=== PATIENT | female | born 1995 | race Caucasian/White ===

== ENCOUNTER 2019-04-15 17:06 | Inpatient (IN) | payer OTHER ==
[~2019-04-15 17:06] MED LIST: Bupivacaine 0.25% HCL 30 ML VIAL ONE
[2019-04-15] MEDS ORDERED: hydrALAZINE 20 MG/ML VIAL SLOW IVP PRN (17:16)
[2019-04-15] MEDS ORDERED: NS / Oxytocin 40 units/1000ml 1,000 ML IV PRN (17:16)
[2019-04-15] MEDS ORDERED: Acetaminophen 500 MG TAB PO PRN (17:16)
[2019-04-15] MEDS ORDERED: Promethazine HCl 25 MG/ML VIAL IM PRN (17:16)
[2019-04-15] MEDS ORDERED: Ibuprofen 800 MG TAB PO PRN (17:16)
[2019-04-15] MEDS ORDERED: Butorphanol Tartrate 1 MG/ML VIAL SLOW IVP PRN (17:16)
[2019-04-15] MEDS ORDERED: HYDROcodone/Acetaminophen 5/325 mg Tablet PO PRN (17:16)
[2019-04-15] MEDS ORDERED: Diphenoxylate HCl/Atropine Tablet PO PRN ×2 (17:16)
[2019-04-15] MEDS ORDERED: Ondansetron PF 4 MG/2 ML Vial IVP PRN (17:16)
[2019-04-15] MEDS ORDERED: Carboprost 250 MCG/ML AMP IM PRN (17:16)
[2019-04-15] MEDS ORDERED: Lidocaine 1% (PF) 30 ML VIAL SC PRN (17:16)
[2019-04-15 17:22] VITALS: BMI 32.2
[2019-04-15] MEDS ORDERED: Penicillin G Potassium 5 MILL.UNITS in Sodium Chloride 0.9% 100 ML IVPB SCH (17:30)
[2019-04-15] MEDS ORDERED: NS w/ Oxytocin 10 units 500 ML IV SCH (17:30)
[2019-04-15] MEDS ORDERED: Oxytocin 10 UNITS/ML VIAL ONE (17:38)
[2019-04-15] MEDS ORDERED: NS w/ Oxytocin 10 units 500 ML ONE (17:38)
[2019-04-15] MEDS ORDERED: Penicillin G Potassium 5 MILL.UNITS VIAL ONE (17:38)
[2019-04-15 17:40] LABS: Mean Corpuscular HGB CONC 34.5 g/dL (32.0-36.0); Mean Corpuscular Hemoglobin 32.6 pg (27.0-31.0); Mean Corpuscular Volume 94.5 fL (78.0-98.0); Mean Platelet Volume 7.7 fL (7.4-10.4); Platelet Count 225 thou/uL (130-400); RBC Distribution Width 11.7 % (11.5-14.5); Red Blood Cell (RBC) Count 3.97 mill/uL (4.20-5.40); White Blood Cell (WBC) Count 14.5 thou/uL (4.8-10.8)
[2019-04-15 18:18] LABS: HBSAg Index 0.24 S/CO (0-0.99); Hep B Surf Ag Non-Reactive S/CO (NonReactive)
[2019-04-15 18:19] LABS: Syphilis Antibody Nonreactive (Nonreactive); Syphilis Antibody Index 0.02 S/CO (<1.00 Non-Reactive)
[2019-04-15] MEDS: Lactated Ringer's 1,000 ML IV SCH (18:54)
[2019-04-15] MEDS: Penicillin G 2.5 MILL.units 2.5 MILL.UNITS in Premix Bag 1 BAG IVPB SCH (21:49)
[2019-04-16] MEDS ORDERED: Fentanyl 4 mcg/Bup 0.1% Cadd 100 ML ONE (01:47)
[2019-04-16] MEDS ORDERED: Naloxone HCl 0.4 mg/ml Vial IVP PRN ×2 (02:23)
[2019-04-16] MEDS ORDERED: Ondansetron PF 4 MG/2 ML Vial IVP PRN ×2 (02:23→08:27)
[2019-04-16] MEDS ORDERED: Promethazine HCl 25 MG/ML VIAL IM PRN (02:23)
[2019-04-16] MEDS ORDERED: Acetaminophen 325 MG TAB PO PRN (02:23)
[2019-04-16] MEDS ORDERED: diphenhydrAMINE 50 MG/ML VIAL IVP PRN (02:23)
[2019-04-16] MEDS ORDERED: Lactated Ringer's 500 ML IV PRN (02:23)
[2019-04-16] MEDS ORDERED: Fentanyl 4 mcg/Bupivacaine 0.1% Cassette 100 ML EPIDURAL SCH (02:30)
[2019-04-16] MEDS ORDERED: Communication Order-Pharmacy FS SCH (02:30)
[2019-04-16] MEDS: Penicillin G 2.5 MILL.units 2.5 MILL.UNITS in Premix Bag 1 BAG IVPB SCH ×2 (02:40→08:18)
[2019-04-16] MEDS: Lactated Ringer's 1,000 ML IV SCH (02:42)
[2019-04-16] MEDS ORDERED: Misoprostol 200 MCG TAB ONE (06:53)
[2019-04-16] MEDS ORDERED: Carboprost 250 MCG/ML AMP ONE (06:53)
[2019-04-16] MEDS ORDERED: Misoprostol 200 MCG TAB PR SCH (07:45)
[2019-04-16] MEDS ORDERED: Milk Of Magnesia 30 ML UDCUP PO PRN ×2 (08:27)
[2019-04-16] MEDS ORDERED: hydrALAZINE 20 MG/ML VIAL SLOW IVP PRN ×2 (08:27)
[2019-04-16] MEDS ORDERED: Ferrous Sulfate 325 MG TAB PO SCH ×2 (08:27→09:00)
[2019-04-16] MEDS ORDERED: Lanolin Ointment 7 GM TUBE TOP PRN (08:27)
[2019-04-16] MEDS ORDERED: NS / Oxytocin 40 units/1000ml 1,000 ML IV SCH ×2 (08:27)
[2019-04-16] MEDS ORDERED: Bisacodyl 10 MG SUPP PR PRN ×2 (08:27)
[2019-04-16] MEDS ORDERED: Adacel (T-DAP) 0.5 ML SYRINGE IM ONE (08:27)
[2019-04-16] MEDS ORDERED: Benzocaine-Menthol 82.5 ML CAN TOP PRN (08:27)
--- NOTE | 2019-04-16 08:55 | DN ---
DATE OF PROCEDURE: 04/16/2019 The patient delivered a female on 04/16/2019 at 0644 hours this morning by term spontaneous vaginal delivery complicated by a posterior cervical laceration. Gestational age is 39 weeks and 6 days. weight is 4180 g. Apgars were 8 and 9. Placenta delivered spontaneously followed by Pitocin infusion. Quantitative blood loss is 526 mL. Posterior laceration was identified and repaired with 2 [id number] suture, which appeared to be reapproximate the cervix and make it hemostatic. There is one nuchal cord x1. Dr. Garcia is the delivering physician. Counts were correct. Mother and baby were stable in the room in the immediate . Job ID: [id number]
[2019-04-16] MEDS ORDERED: FLU VACC QS2019-20(6MOS UP)/PF 60 MCG/0.5 ML SYRINGE IM ONE (09:00)
[2019-04-16] MEDS ORDERED: Docusate Calcium (SURFAK) 240 MG CAP PO SCH (09:00)
[2019-04-16] MEDS: Prenatal Vitamin 1 TAB PO SCH (10:43)
[2019-04-16] MEDS: Docusate Calcium (SURFAK) 240 MG CAP PO SCH ×2 (10:43→21:40)
[2019-04-16] MEDS ORDERED: Ibuprofen 800 MG TAB PO SCH (14:00)
[2019-04-16] MEDS: Ibuprofen 800 MG TAB PO SCH ×2 (15:03→23:44)
[2019-04-16] MEDS: Ferrous Sulfate 325 MG TAB PO SCH (17:10)
[2019-04-16] MEDS: Acetaminophen/Codeine 30-300mg Tablet PO PRN (17:23)
[2019-04-17] MEDS: Ibuprofen 800 MG TAB PO SCH ×3 (05:30→19:58)
[2019-04-17 06:10] LABS: Hemoglobin 11.1 g/dL (12.0-16.0)
--- NOTE | 2019-04-17 08:39 | PDOC.PP ---
Post Progress Note Post Day #: 1 PO intake tolerated: yes Flatus: yes Ambulation: yes Vital Signs (12 hours) Temp Pulse Resp BP Pulse Ox 04/17/19 08:30 98.4 F 84 20 142/60 H 97 04/17/19 04:00 98.0 F 85 18 123/58 L 04/16/19 23:42 98.7 F 87 18 120/58 L Weight Weight 212 lb Result Diagrams: 04/17/19 05:52 Additional Labs: Post Labs Blood Type B POSITIVE 04/15/19 18:32 Hep Bs Antigen Non-Reactive S/CO (NonReactive) 04/15/19 17:27 - Assessment/Plan Post day1. . Doing well. Blood pressures normalized. Discharge in AM. Breast feeding. RTC 6 weeks.
[2019-04-17] MEDS: Ferrous Sulfate 325 MG TAB PO SCH ×2 (09:31→18:09)
[2019-04-17] MEDS: Prenatal Vitamin 1 TAB PO SCH (09:38)
[2019-04-17] MEDS: Docusate Calcium (SURFAK) 240 MG CAP PO SCH ×2 (09:38→19:58)
[2019-04-17] MEDS: Acetaminophen/Codeine 30-300mg Tablet PO PRN (19:58)
[2019-04-18] MEDS: Ibuprofen 800 MG TAB PO SCH ×2 (04:52→14:59)
--- NOTE | 2019-04-18 06:04 | PDOC.PP ---
Post Progress Note Post Day #: PPD2 Subjective: Resting, no c/o. PO intake tolerated: yes Flatus: yes Ambulation: yes Vital Signs (12 hours) Temp Pulse Resp BP Pulse Ox 04/17/19 19:45 98 04/17/19 19:40 98.2 F 88 16 131/65 98 Weight Weight 96.162 kg - Physical Examination General: NAD Respiratory: non-labored breathing Neurological: no gross focal deficits Psychiatric: normal affect Result Diagrams: 04/17/19 05:52 Additional Labs: Post Labs Blood Type B POSITIVE 04/15/19 18:32 Hep Bs Antigen Non-Reactive S/CO (NonReactive) 04/15/19 17:27 - Assessment/Plan Doing well. DC home with precautions. RTC [address] Stoner.
[2019-04-18 08:18] VITALS: BP 132/71; TEMP 98.1
[2019-04-18] MEDS: Prenatal Vitamin 1 TAB PO SCH (09:38)
[2019-04-18] MEDS: Docusate Calcium (SURFAK) 240 MG CAP PO SCH (09:39)
[2019-04-18] MEDS: Acetaminophen/Codeine 30-300mg Tablet PO PRN (09:41)
[2019-04-18] MEDS: Ferrous Sulfate 325 MG TAB PO SCH ×2 (16:50→16:51)
== END 2019-04-18 17:40 | disposition home or self-care (01) | DRG 768 ==
LOC: L&D/OP 17:06 → L&D 17:08 → 3SW 04-16 15:31
PROVIDERS: ADMIT Obstetrics & Gynecology; ATTEND Obstetrics & Gynecology
PROC: 10907ZC Drainage of Amniotic Fluid, Therapeutic from Products of Conception, Via Natural or Artificial Opening (ICD-10-PCS; 2019-04-15)
PROC: 3E0P7VZ Introduction of Hormone into Female Reproductive, Via Natural or Artificial Opening (ICD-10-PCS; 2019-04-15)
PROC: 3E033VJ Introduction of Other Hormone into Peripheral Vein, Percutaneous Approach (ICD-10-PCS; 2019-04-15)
PROC: 10E0XZZ Delivery of Products of Conception, External Approach (ICD-10-PCS; principal; 2019-04-16)
PROC: 0UQC7ZZ Repair Cervix, Via Natural or Artificial Opening (ICD-10-PCS; 2019-04-16)
DX: O13.4 Gestational [pregnancy-induced] hypertension without significant proteinuria, complicating childbirth (principal); Z37.0 Single live birth; Z3A.39 39 weeks gestation of pregnancy; O99.824 Streptococcus B carrier state complicating childbirth; O69.81X0 Labor and delivery complicated by cord around neck, without compression, not applicable or unspecified; O71.3 Obstetric laceration of cervix
CPT/HCPCS: 36415; 51702; 85014; 85018; 85027; 86780; 86850; 86900; 86901; 87340; J0595; J2405; J2540; J2590; J3490; S0020